=== PATIENT | male | born 1995 | race Caucasian/White ===

== ENCOUNTER 2020-03-22 06:58 | Emergency (ER) | payer OTHER ==
[~2020-03-22] VITALS: Ht 175.3 cm; Wt 97.7 kg
[2020-03-22] MEDS ORDERED: FLUT16H NASAL (07:02)
[2020-03-22] MEDS ORDERED: IBUPROFEN 600 MG TABLET PO ONE (07:15)
[2020-03-22 08:18] VITALS: BP 137/70
== END 2020-03-22 08:20 | disposition home or self-care (01) ==
LOC: EMS 06:58
DX: S50.11XA Contusion of right forearm, initial encounter (principal); F17.210 Nicotine dependence, cigarettes, uncomplicated; W22.8XXA Striking against or struck by other objects, initial encounter; Y93.89 Activity, other specified; Y92.89 Other specified places as the place of occurrence of the external cause; Y99.8 Other external cause status

== ENCOUNTER 2020-03-27 16:04 | Emergency (ER) | payer OTHER ==
[~2020-03-27] VITALS: Ht 175.3 cm; Wt 97.7 kg
[~2020-03-27 16:04] MED LIST: FLUT16H NASAL
[2020-03-27 16:09] VITALS: BP 131/75
== END 2020-03-27 16:31 | disposition home or self-care (01) ==
LOC: EMS 16:04
DX: S50.11XA Contusion of right forearm, initial encounter (principal); F17.210 Nicotine dependence, cigarettes, uncomplicated; X58.XXXA Exposure to other specified factors, initial encounter; Y93.89 Activity, other specified; Y92.89 Other specified places as the place of occurrence of the external cause; Y99.8 Other external cause status
CPT/HCPCS: Z7502